=== PATIENT | female | born 1955 | race Caucasian/White ===

== ENCOUNTER → 2021-08-28 | Day surgery (SDC) | payer OTHER ==
[~2021-08-28] VITALS: Ht 152.4 cm; Wt 61.2 kg
[~2021-08-28] MED LIST: ASA81BEC PO; ATORVASTATIN CA80 MG PO; AZITHROMYCIN 6600 M1 PO; BACTRIM DS TAB1 EACH PO; CITALOPRAM HBR40 MG PO; CYTOMEL 25 MCG25 MCG PO; DULCOLAX STOOL100 M1 PO; ESOMEPRAZOLE MA40 MG PO; EZETIMIBE10 MG PO; FLUCONAZOLE200 MG PO; GAVISCON TABLE1 EACH PO; GEMFIBROZIL 60600 M1 PO; LOPRESSOR50 PO; METFORMIN HCL500 M1 PO; ONE-DAILY MULT1 EAC1 PO; VITAMIN C500 M1 PO; VITAMIN D350 MC3 PO; VITAMIN E400 UNI2 PO
--- NOTE | ~2021-08-28 | O ---
[facility] [place] [address] OPERATIVE REPORT Name: LEONARD ANDRE Room #: REG [facility] [place] M..#: [id number] Admission: 08/28/21 Attend Phys: Vaughn Segal MD Discharge: Date of : 55 Report #: [id number] THIS REPORT FOR: cc: Naila Vasquez MD,Naila Segal,Vaughn Clifford MD ~ cc: Naila Vasquez MD, DATE OF SERVICE: 08/28/2021 PREOPERATIVE DIAGNOSIS: Tumor of left lower lid and cheek. POSTOPERATIVE DIAGNOSIS: Tumor of left lower lid and cheek. PROCEDURE: Excision of tumor of left lower lid and cheek with frozen section control of margins and myocutaneous flap repair of defect. SURGEON: Vaughn Segal MD [employer]LE [employer] RV TECHNICIAN: None. ANESTHESIA: MAC. COMPLICATIONS: None. INDICATIONS FOR SURGERY: This pleasant 65-year-old woman presents with a nodular ulcerative lesion in her lateral left lower lid extending through the canthus and down onto her cheek. The lesion appears to most likely be a basal cell carcinoma. She presents today for excision of this lesion with frozen section control of tumor extirpation and subsequent reconstruction of that defect. Informed consent was obtained to include, but not limited to the potential risk for loss of vision, bleeding, infection, failure to improve the problem, the potential need for further surgery or treatment. DESCRIPTION OF PROCEDURE: The patient was taken to the operating room where 2% Xylocaine with epinephrine mixed with equal parts 0.75% Marcaine with Wydase was administered transcutaneously and transconjunctivally to the left lower lid, the left lateral canthus, the cheek and the infratemporal fossa on the left side. In addition, the lateral portion of the left upper lid was anesthetized. The patient was subsequently prepped and draped in the usual sterile fashion. A fine tip skin marking pen was then utilized to outline the lesion including approximately 2 mm of normal appearing tissue. The incisions were then made perpendicularly across the eyelid margin, which included the entire lateral canthus down on to the premalar space, where the lesion was drawn out to a point. The lesion was excised deeply with a Victor Hugo scissors and then oriented on a drawing for the waiting pathologist. Hemostasis was achieved in the field [address] [address] OPERATIVE REPORT Name: LEONARD ANDRE Room #: REG [facility] [place] Jaron.Carson#: [id number] Admission: 08/28/21 Attend Phys: Vaughn Segal MD Discharge: Date of : 55 Report #: [id number] with pinpoint monopolar cautery. 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 Definitive pathology, however, would have to be dependent upon permanent sections. She did once again feel that her margins were clear. A myocutaneous flap was then developed laterally to correct the defect. Hemostasis was then re-achieved. The flap was then advanced and secured with multiple interrupted deep 5-0 Vicryl sutures. The lateral canthal angle was sharply reformed as the flap was drawn across that area with interrupted 5-0 Vicryl sutures that went back on to Whitnall's tubercle. The eyelid margin was then reapproximated laterally with interrupted 7-0 Vicryl sutures. The subcutaneous structures and the skin were superficially closed with buried 5-0 Vicryl sutures followed by a final closure of 6-0 plain gut. The wounds were then cleaned and dressed with erythromycin ophthalmic ointment. The patient was subsequently transported to the recovery area having tolerated the procedures well with no anesthetic or operative complications being noted. By: 1415 1429 Vaughn Segal MD /nt
[2021-08-28 12:28] VITALS: BP 135/65
--- NOTE | 2021-08-29 17:06 | PATH ---
[facility] [place] [address] PATHOLOGY RPT PROCEDURE Name: LEONARD ANDRE Room #: REG [facility]..#: [id number] Admission: 08/28/21 Date of : 55 Discharge: Report #: [id number] Path Case #: [id number] [facility] Accession Number: [id number] . 01 Material submitted: . lid - LESION LEFT LOWER LID- FS. Modifiers: left, lower . 01 Clinical history: . BASAL CELL CARCINOMA OF SKIN OF LEFT LOWER EYELID, INCLUDING CANTHUS . . . . . 02 Frozen section diagnosis: . FROZEN SECTION DIAGNOSIS: (By Dr. Steff Welch) . FSA1. Skin, left lower lid FS, excision: - Margins free in the sections examined. . These findings are discussed with Dr. Vaughn Segal in OR 6 at [facility] and a written report is placed in the patient's chart. (IUV:pit; 08/28/2021) . FROZEN SECTION GROSS DICTATION: The specimen is received fresh from the OR labeled with the patient's name, and "lesion left lower lid frozen section" consists of an oriented inverted triangular shaped specimen measuring 2.5 cm from base to the height and a base measuring 1.0 cm. The base of the triangle is towards the superior end of the specimen. The specimen is marked as lateral, inferior and medial, the lateral to inferior margin is inked black including the deep margin. The lower half of the medial margin is inked blue and the upper half of the medial margin is inked green. At this point the specimen is sectioned into four pieces and submitted for frozen section as FSA1, this is subsequently submitted for permanent section as A1. (IUV:pit; 08/28/2021) . . . Frozen section performed at [facility], [address] [place] [address]. IZV/TEDDYR . 02 Diagnosis: Skin, left lower lid, excision: - INVASIVE MODERATELY-DIFFERENTIATED SQUAMOUS CELL CARCINOMA. [facility] [place] [address] PATHOLOGY RPT PROCEDURE Name: LEONARD ANDRE Room #: REG [facility] M.R.#: [id number] Admission: 08/28/21 Date of : 55 Discharge: Report #: [id number] Path Case #: [id number] - FOCAL PERINEURAL INVASION PRESENT. - FOCAL SKELETAL MUSCLE INVASION PRESENT. - Margins of resection free of malignancy in the sections examined. . (IUV:mml; 08/29/2021) QLM 08/29/2021 1226 Local . 02 Electronically signed: . Steff Welch MD, Pathologist NPI- [id number] . 03 Gross description: . PLEASE SEE GROSS DESCRIPTION UNDER FROZEN SECTION DIAGNOSIS. /MBR 08/28/2021 1821 Local . 02 Pathologist provided ICD-10: C44.1192 . 02 CPT . 667730, [id number] Specimen Comment: A courtesy copy of this report has been sent to [phone] Specimen Comment: [phone] Specimen Comment: Report sent to / DR WOLF Performed at: 01 [facility] [address], [place] [id number] MD Christian Cole MD Phone: [phone] Performed at: [address] [facility] [id number] MD Steff Welch MD Phone: [phone] Performed at: [address] [facility] [address], [place], [place] [id number] MD Socrates Sanchez MD Phone: [phone]
== END | disposition home or self-care (01) ==
LOC: OR 06:15
PROVIDERS: ATTEND Ophthalmology
DX: C44.1292 Squamous cell carcinoma of skin of left lower eyelid, including canthus (principal); I10 Essential (primary) hypertension; E11.9 Type 2 diabetes mellitus without complications; E03.9 Hypothyroidism, unspecified; E78.00 Pure hypercholesterolemia, unspecified; M81.0 Age-related osteoporosis without current pathological fracture; F32.9 Major depressive disorder, single episode, unspecified; F41.9 Anxiety disorder, unspecified; K21.9 Gastro-esophageal reflux disease without esophagitis; Z98.890 Other specified postprocedural states; Z79.899 Other long term (current) drug therapy; Z20.822 Contact with and (suspected) exposure to COVID-19; Z90.710 Acquired absence of both cervix and uterus; Z90.49 Acquired absence of other specified parts of digestive tract; Z98.51 Tubal ligation status
CPT/HCPCS: 50010; 50101; 50386; 50398; 51636; 56528; 56531; 62110; 62850; 70005

== ENCOUNTER 2021-09-25 07:22 | Day surgery (SDC) | payer OTHER ==
[~2021-09-25] VITALS: Ht 152.4 cm; Wt 61.2 kg
--- NOTE | ~2021-09-25 | O ---
[facility] [place] [address] OPERATIVE REPORT Name: LEONARD ANDRE Room #: [place] [facility] [place] M..#: [id number] Admission: 09/25/21 Attend Phys: Oleg Bernabe, Discharge: Date of : 55 Report #: [id number] THIS REPORT FOR: cc: Naila Vasquez MD,Naila Bernabe,Oleg Vasquez MD ~ DATE OF SERVICE: 09/25/2021 PREOPERATIVE DIAGNOSES: Hiatal hernia with severe gastroesophageal reflux disease. POSTOPERATIVE DIAGNOSES: Hiatal hernia with severe gastroesophageal reflux disease. OPERATION: Laparoscopic repair of hiatal hernia with mesh implantation with placement of LINX antireflux device. SURGEON: Oleg Bernabe MD ANESTHESIA: General. ESTIMATED BLOOD LOSS: Minimal. SPECIMENS: None. DESCRIPTION OF PROCEDURE: After informed consent was obtained, the patient was brought to the operating room and placed supine. SCDs were placed and working, preoperative antibiotics were administered, general anesthesia was induced. The abdomen was prepped and draped in the usual sterile fashion. A 1 mm incision was made in the left upper quadrant. A Veress needle was inserted. Pneumoperitoneum was established. A left periumbilical 5 mm trocar was placed under direct vision. I then placed three more 5 mm trocars and aligned across the abdomen, 8 cm apart. A Mala retractor was inserted through the epigastrium. The patient was then placed in the reverse Trendelenburg position and the liver was retracted anteriorly and superiorly. The hiatus was visualized. The pars flaccida was incised. LigaSure dissection was used to dissect up to the right irvin, which was identified. Phrenoesophageal ligament was incised with the LigaSure. Left irvin was identified. The distal esophagus was identified. The hiatal hernia was carefully reduced. A Awilda drain was placed around the distal esophagus. I then performed a full mediastinal dissection. This allowed for good intraabdominal length on the esophagus. A cruroplasty was then performed using 2-0 Ethibond sutures. I cut OviTex mesh into 1 cm squares and placed them on each side of the suture to act as a pledget. [facility] [address] [place] [address] OPERATIVE REPORT Name: LEONARD ANDRE Room #: REG [facility].#: [id number] Admission: 09/25/21 Attend Phys: Oleg Bernabe, Discharge: Date of : 55 Report #: [id number] A window between the posterior vagus and the distal esophagus was made. A Burson drain was placed through this window. LINX sizer was placed. This was a size 15. Sizer was removed and a 15 size length was placed. It was clasped around the distal esophagus. It was not too loose or too tight. The liver was then placed back into its anatomic position. The ports were removed under direct vision. The skin was closed with 4-0 Monocryl. Incisions were closed with 4-0 Monocryl and dressed with Steri-Strips. COMPLICATIONS: None. DISPOSITION: The patient was taken to recovery in satisfactory condition. By: 1127 1153 Oleg Bernabe MD /nt
[~2021-09-25 07:22] MED LIST changes: +LOPRESSOR50 MG PO
[2021-09-25 08:45] VITALS: BP 126/78
[2021-09-25 09:33] LABS: HEMATOCRIT 37.4 % (37.0-47.0); HEMOGLOBIN 12.3 gm/dL (12.0-15.0); MCH 29.1 pg (26.0-34.0); MCV 88.3 fL (80.0-100.0); RBC 4.24 mil/uL (4.20-5.00); RDW 13.1 % (10.5-14.5); WBC 3.7 thou/uL (4.0-11.0)
[2021-09-25 09:36] LABS: CREATININE 0.7 mg/dL (0.6-1.0); POTASSIUM 4.4 mmol/L (3.5-5.1)
[2021-09-25 16:18] VITALS: BP 160/88
[2021-09-25 16:24] VITALS: BP 160/88
[2021-09-25 20:20] VITALS: BP 139/76
[2021-09-26 08:28] VITALS: BP 117/81
[2021-09-26 08:34] VITALS: BP 153/73
[2021-09-26] MEDS ORDERED: NORCO5 PO (14:00)
[2021-09-26 14:43] VITALS: BP 153/73
[2021-09-26 14:45] VITALS: BP 153/73
== END 2021-09-26 14:55 | disposition home or self-care (01) ==
LOC: OR → 4S 07:22 → OR 07:22 → 4S 15:41 → OR 09-26 14:55
PROVIDERS: ATTEND Surgery
DX: K44.9 Diaphragmatic hernia without obstruction or gangrene (principal); K21.9 Gastro-esophageal reflux disease without esophagitis; I10 Essential (primary) hypertension; E78.5 Hyperlipidemia, unspecified; E03.9 Hypothyroidism, unspecified; E11.9 Type 2 diabetes mellitus without complications; M81.0 Age-related osteoporosis without current pathological fracture; Z98.890 Other specified postprocedural states; Z79.899 Other long term (current) drug therapy; Z85.828 Personal history of other malignant neoplasm of skin; Z98.51 Tubal ligation status; Z90.49 Acquired absence of other specified parts of digestive tract; Z90.710 Acquired absence of both cervix and uterus; Z87.19 Personal history of other diseases of the digestive system; Z86.718 Personal history of other venous thrombosis and embolism; Z79.01 Long term (current) use of anticoagulants; Z20.822 Contact with and (suspected) exposure to COVID-19
CPT/HCPCS: 50010; 50101; 50386; 50555; 51489; 52265; 52266; 53307; 53310; 56462; 56526; 56527; 57092; 58104; 58574; 58586; 58684; 59088; 70005